=== PATIENT | female | born 1980 | race African-American/Black ===

== ENCOUNTER 2017-02-13 17:36 | Emergency (ER) | payer MEDICAID ==
[2017-02-13 18:04] VITALS: BP 135/91
[2017-02-13 18:19] LABS: Hematocrit 41.7 % (37.0-47.0); Hemoglobin 13.1 gm/dL (12.5-16.0); Mean Cell Volume 79.4 fl (78-100); Mean Corpuscular Hgb Conc 31.4 g/dl (32-36); Mean Platelet Volume 9.8 fl (6.0-9.5); Neutrophil # 9.3 K/mm3 (1.3-6.0); Neutrophil % 65.8 % (42-75.0); Platelet Count 300 K/mm3 (150-450); Red Blood Count 5.25 M/mm3 (4.2-5.4); Red Cell Distribution Width 14.7 % (11.5-14.0); White Blood Count 14.2 K/mm3 (4.0-10.5)
[2017-02-13 18:30] LABS: Urine Bilirubin Negative (NEGATIVE); Urine Blood Negative /ul (NEGATIVE); Urine Ketone Negative (NEGATIVE); Urine Nitrite Negative (NEGATIVE); Urine Protein Negative (NEGATIVE); Urine Specific Gravity >=1.030 SP.GR. (1.005-1.010); Urine Urobilinogen Normal (NORMAL)
[2017-02-13 18:32] LABS: Albumin * 3.5 gm/dl (3.4-5.0); Anion Gap 12.1 mmol/L (6.8-13.8); Bilirubin, Total 0.2 mg/dL (0.0-1.1); Ca. Corrected For Albumin 8.9 mg/dL (8.4-10.2); Calcium * 8.8 mg/dL (7.9-10.9); Carbon Dioxide 26.8 mmol/L (24-32.6); Potassium 3.9 mmol/L (3.4-4.6); Total Protein 7.9 gm/dL (6.2-8.2)
[2017-02-13 19:11] LABS: Urine Color Dark Yellow
[2017-02-13 19:12] LABS: Urine Appearance Clear; Urine WBC None Seen /hpf (0-5)
[2017-02-13 19:13] LABS: Urine Bacteria 2+; Urine RBC None Seen /hpf (0-5)
[2017-02-13 19:14] LABS: Urine Amorphous Sediment Few - 1+ (NONE-FEW)
[2017-02-13] MEDS ORDERED: KETOROLAC TROMETHAMINE 60 MG/2 ML VIAL IM ONE ×2 (20:09→20:10)
--- NOTE | 2017-02-13 20:17 | ERNOTE ---
Back Pain ER HPI Presenting Symptoms: injury/pain to back Time Seen by Provider: 02/13/17 19:58 Source: patient Exam Limitations: no limitations Immunizations: IMMUNIZATION HX Immunizations Up to Date Yes History of Influenza Vaccine No Hx Pneumococcal Vaccination No Allergies/Adverse Reactions: Allergies No Known Allergies Allergy (Verified 02/13/17 18:05) Home Medications: HOME MEDICATIONS Lutera 0.1 - 20 mg PO DAILY 10/07/15 [Last Taken Unknown] Nabumetone 750 mg PO BID #20 tablet 02/13/17 [Last Taken Unknown] Narrative: Pt states he has had left flank pain for 1-2 days. Worse when she takes a deep breath, feels somewhat better when she pushes on it and when she used ice. It was better when she awoke today but worsened throughout the day. Timing: Reports: getting worse Quality/Severity: Reports: severe, dullness Location of pain: Reports: upper back Activities at Onset: Reports: none Recent Injury?: Reports: no Modifying Factors - (Improves): Reports: other - change in position seems to reduce the pain for a short time and then it increases again and she has to change position again Modifying Factors - (Worsens): Reports: cough/deep breaths Associated Symptoms: Reports: sweating - feeling hot Review of Systems - Review of Systems Constitutional: Present: recent illness - mild cough EYE: Present: no symptoms reported ENT: Present: no symptoms reported Respiratory: Present: shortness of breath - she is not sure, cough Cardiology: Absent: chest pain Gastrointestinal/Abdominal: Absent: nausea, vomiting, abdominal pain Genitourinary: Absent: frequency, pain, dysuria Musculoskeletal: Present: no symptoms reported Skin: Present: no symptoms reported Neurological: Present: no symptoms reported Endocrine: Present: no symptoms reported Hematologic/Lymphatic: Present: no symptoms reported Psych: Present: no symptoms reported - Patient's Past Medical History Patient History - Medical: No pertinent hx Patient History - Cardiac/Respiratory: Asthma Patient History - Cancer: No Hx of Cancer Patient History - Surgical Procedures: , Other Patient History - Other: None LMP (Calendar): 01/25/17 - Family History Grandfather-Maternal Family History - Medical: , Diabetes Type 2 Family History - Cardiac/Respiratory: Myocardial Infarction Grandmother-Maternal Family History - Medical: , Diabetes Type 2 Family History - Cardiac/Respiratory: No pertinent hx Mother Family History - Medical: No pertinent hx Family History - Cardiac/Respiratory: Hypertension Aunt Family History - Medical: No pertinent hx Family History - Cardiac/Respiratory: Hypertension Uncle Family History - Medical: No pertinent hx Family History - Cardiac/Respiratory: Hypertension - Social History Living Situations: home Abuse History: No History of abuse Psych History: No pertinent hx Smoking Status: Current every day smoker Alcohol Use: occasionally Drug Use: other - Immunizations Immunizations Up to Date: Yes Hx Pneumococcal Vaccination: No History of Influenza Vaccine: No Physical Exam - Physical Exam General Appearance: Present: wd/wn, alert, no apparent distress Head Exam: Present: normal inspection, no evidence of injury Eye Exam: Normal inspection: bilateral Ears, Nose, Throat: Present: normal ENT inspection Neck: Present: normal inspection, full range of motion Respiratory: Present: no respiratory distress, normal breath sounds, no accessory muscle use Cardiovascular/Chest: Present: regular rate, rhythm, no murmur, normal peripheral pulses Gastrointestinal/Abdominal: Present: nontender, nondistended, soft Back Exam: Present: normal inspection, normal range of motion, CVA tenderness (L ) - minimal, superficial Extremity Exam: Present: normal inspection, non-tender Neurological Exam: Present: alert, oriented, normal mood/affect Skin Exam: Present: normal color, warm/dry. Absent: skin rash Lymphatic Exam: Present: no adenopathy ED Progress - Results and Orders Patient's Lab Results:: I have reviewed the patient's lab results. Results and Orders: Laboratory Tests 02/13/17 02/13/17 02/13/17 18:10 18:20 18:20 WBC 14.2 H Hgb 13.1 Hct 41.7 RDW 14.7 H Sodium 141 Potassium 3.9 Chloride 106 Carbon Dioxide 26.8 Anion Gap 12.1 BUN 15 Creatinine 0.94 Random Glucose 81 Calcium 8.8 Total Bilirubin 0.2 AST 18 ALT 35 Alkaline Phosphatase 82 Total Protein 7.9 Albumin 3.5 Urine Color Dark yellow Urine Appearance Clear Urine pH 6.0 Ur Specific [place] >=1.030 Urine Protein Negative Urine Glucose (UA) Negative Urine Ketones Negative Urine Blood Negative Urine Nitrate Negative Urine Bilirubin Negative Urine Urobilinogen Normal Ur Leukocyte Esterase Negative Urine RBC None seen Urine WBC None seen Ur Epithelial Cells 0-5 Amorphous Sediment Few - 1+ Urine Bacteria 2+ H Urine Culture Comments No culture indicated Urine HCG, Qual 02/13/17 19:49 WBC Hgb Hct RDW Sodium Potassium Chloride Carbon Dioxide Anion Gap BUN Creatinine Random Glucose Calcium Total Bilirubin AST ALT Alkaline Phosphatase Total Protein Albumin Urine Color Urine Appearance Urine pH Ur Specific [place] Urine Protein Urine Glucose (UA) Urine Ketones Urine Blood Urine Nitrate Urine Bilirubin Urine Urobilinogen Ur Leukocyte Esterase Urine RBC Urine WBC Ur Epithelial Cells Amorphous Sediment Urine Bacteria Urine Culture Comments Urine HCG, Qual Negative - Vital Signs Patient's Vital Signs:: I have reviewed the patient's vital signs. Vital Signs: Vital Signs 02/13/17 18:01 Temperature 37.2 C Pulse Rate 90 Respiratory 16 Rate Blood Pressure 135/91 O2 Sat by Pulse 98 Oximetry - X-Ray X-Ray #1 X-Ray: chest Interpretation: Reviewed by me X-ray Comments: Findings: Scattered calcified granulomas. The lungs are clear bilaterally. There is no consolidation, pleural effusion or pneumothorax. Cardiac silhouette and pulmonary vasculature are normal. The osseous structures are normal. IMPRESSION: NO ACUTE CARDIOPULMONARY ABNORMALITY IDENTIFIED. Electronically signed by Ray Mcdaniel D.O.. - Progress/Reassessment Chief Complaint: Back Pain Departure Clinical Impression: Pleurisy - Departure Disposition: Home self-care Condition: Good Instructions: Pleurisy Additional Instructions: Take prescription as prescribed for 5-7 days then as needed. See your primary care physician if not improving. Prescriptions: Nabumetone 750 mg PO BID #20 tablet
== END 2017-02-13 21:15 | disposition home or self-care (01) ==
LOC: ER 17:36
DX: F17.200 Nicotine dependence, unspecified, uncomplicated (principal); R09.1 Pleurisy

== ENCOUNTER 2019-06-28 09:00 | Inpatient (IN) ==
[2019-06-28] MEDS: RINGER'S SOLUTION,LACTATED 1,000 ML IV PRN ×2 (09:30→13:10)
[2019-06-28] MEDS ORDERED: ceFAZolin SODIUM 1 GM VIAL ONE (09:34)
--- NOTE | 2019-06-28 09:36 | PN ---
Progess Note - Interim Date: 06/28/19 Time: : Narrative: 06/28/19 09:33 The patient is a 38 year old at 36w 6d with pre-eclampsia without severe features. She has a headache that has not resolved with tylenol and thus will proceed with delivery given that the patient is almost 37 weeks.
--- NOTE | 2019-06-28 09:47 | ANES ---
Anesthesia Pre Procedure Eval HOME MEDICATIONS Docusate Sodium [Colace] 200 mg PO DAILY 03/29/19 [Last Taken 06/18/19] aspirin 81 mg tablet,delayed release 81 mg PO DAILY 04/04/19 [Last Taken 05/30/19] Ferrous Sulfate [Iron] 650 mg PO DAILY 05/30/19 [Last Taken 06/18/19] breast pump See Rx Instructions .ROUTE .MEDSUPPLY #1 ea 06/10/19 [Last Taken Unknown] Vits96/Iron Fum/Folic [ S] 1 tab PO DAILY 06/23/19 [Last Taken Unknown] clindamycin HCl 300 mg capsule 300 mg PO Q8H 10 Days #30 cap 06/25/19 [Last Taken Unknown] Allergies/Adverse Reactions: Allergies Allergy/AdvReac Type Severity Reaction Status Date / Time No Known Allergies Allergy Verified 06/27/19 08:47 - Planned Procedure Planned Procedure: Repeat Section w/ Bilat Salpingectomy Medication List Reviewed:: Yes Allergies Verified: Yes Medical History (Last Reviewed 06/28/19 @ 09:34 by Darin Bess CRNA) Preeclampsia (Acute) Onset Date: 2019 Alpha thalassemia (Chronic) Cellulitis (Acute) Increase in cellulitis on clindamycin. Stop clindamycin and give a one time dose of Rocephin 2 grams IM contractions (Acute) To L&D for monitoring for one hour Dichorionic diamniotic twin gestation (Acute) NST reactive x2 Pleurisy (Resolved) Colitis (Resolved) Onset Date: ~2018 Abnormal Pap smear of cervix Onset Date: ~2015 ASCUS, +HRHPV, colpo performed-NORBERT I-III, LEEP performed-NORBERT III. Asthma age 19-no problems since Gonorrhea Ovarian cyst Surgical History (Last Reviewed 06/28/19 @ 09:34 by Darin Bess CRNA) H/O wisdom tooth extraction History of LEEP (loop electrosurgical excision procedure) of cervix complicating Onset Date: ~2015 NORBERT III History of colposcopy Onset Date: ~2014 NORBERT I-NORBERT III Previous section Onset Date: ~2006 failure to progress Family History (Last Reviewed 06/28/19 @ 09:34 by Darin Bess CRNA) Mother Hypertension Grandmother Diabetes Cancer colon cancer Uncle Cancer liver cancer Father Unknown family medical history - Family Anesthesia History Family History:: no untoward family reactions to anesthesia - Had sedation post delivery 12 years ago for "shaking" post delivery, no familial bleeding tende ncies, no family history of clotting disorders, no family history of premature - Airway/Neck/Teeth Within Normal Limits:: Yes Teeth Condition: intact Neck Exam: full range of motion Mallampatti Score: 2 Thyromental (T-M) distance: > 6 cm Mandibulo Hyoid distance: > 3 cm - Respiratory Respiratory History: asthma - as child Respiratory Physical: lungs clear Smoking Status: Former smoker - quit during Sleep Apnea currently treated: No Sleep Apnea by current assessment: No - Cardiovascular Tolerate Activity: Fair Heart Sounds: S1 & S2, Regular - Gastrointestinal NPO since: 2400 Comments:: Has "infected bite" left forearm. currently on antibiotics. - Anesthesia Assessment and Plan ASA Class: PS, II Anesthesia Type Plan: Block - bilteral TAP block for post op pain relief, Spinal
[2019-06-28] MEDS ORDERED: OXYTOCIN 20 UNITS in RINGER'S SOLUTION,LACTATED 1,000 ML IV ONE ×4 (09:50)
[2019-06-28] MEDS ORDERED: BISACODYL 10 MG SUPP.RECT RC PRN (09:50)
[2019-06-28] MEDS ORDERED: SENNOSIDES 8.6 MG TABLET PO PRN (09:50)
[2019-06-28] MEDS ORDERED: RINGER'S SOLUTION,LACTATED 1,000 ML IV ONE (09:50)
[2019-06-28] MEDS ORDERED: ONDANSETRON HCL/PF 2 MG/ML VIAL IV PRN (09:50)
[2019-06-28 10:04] LABS: Hematocrit 36.2 % (37.0-47.0); Hemoglobin 11.4 gm/dL (12.5-16.0); Mean Cell Volume 81.7 fl (78-100); Mean Corpuscular Hemoglobin 25.7 pg (27-31); Mean Corpuscular Hgb Conc 31.5 g/dl (32-36); Mean Platelet Volume 11.2 fl (8-12.5); Neutrophil % 66.4 % (42-75.0); Platelet Count 170 K/mm3 (150-450); Red Blood Count 4.43 M/mm3 (4.2-5.4); White Blood Count 10.5 K/mm3 (4.0-10.5)
[2019-06-28] MEDS ORDERED: MIDAZOLAM HCL/PF 5 MG/ML VIAL ONE ×2 (10:56→12:49)
[2019-06-28] MEDS ORDERED: ONDANSETRON HCL/PF 2 MG/ML VIAL ONE (10:57)
[2019-06-28] MEDS ORDERED: BUPIVACAINE HCL/EPINEPHRINE 50 ML VIAL ONE (10:57)
[2019-06-28] MEDS ORDERED: fentaNYL CITRATE/PF 50 MCG/ML AMPUL ONE ×2 (10:57→12:48)
[2019-06-28] MEDS ORDERED: LABETALOL HCL 5 MG/ML VIAL IV ONE (10:57)
[2019-06-28] MEDS ORDERED: ACETAMINOPHEN 500 MG TABLET PO ONE (10:58)
--- NOTE | 2019-06-28 10:58 | PN ---
Progess Note - Interim Date: 06/28/19 Time: 10:57 Narrative: 06/28/19 10:57 Blood pressures are now in the severe range consistent with pre-eclampsia with severe features. Give 1 gram of tylenol for the patient's headache Give labetalol 20 mg IV a one time dose The patient will need magnesium after delivery
[2019-06-28] MEDS ORDERED: MAGNESIUM SULFATE IN WATER 50 ML IV ONE ×3 (11:07→11:15)
[2019-06-28 11:11] LABS: Cocaine Ur Negative (NEGATIVE); Urine Barbiturate Negative (NEGATIVE); Urine Benzodiazepines Negative (NEGATIVE); Urine Opiates Negative (NEGATIVE); Urine PCP Negative (NEGATIVE); Urine THC Negative (NEGATIVE)
[2019-06-28] MEDS ORDERED: CALCIUM GLUCONATE 4.65 MEQ/10 ML VIAL IV PRN (11:20)
[2019-06-28] MEDS ORDERED: DIAZEPAM 5 MG/ML SYRG IV PRN (11:20)
[2019-06-28] MEDS: MAGNESIUM SULFATE IN WATER 1,000 ML IV SCH (12:44)
[2019-06-28] MEDS ORDERED: HYDROmorphone HCL 2 MG/ML VIAL ONE (13:26)
--- NOTE | 2019-06-28 13:49 | ANES ---
Post Anesthesia Discharge - Transfer of Care Transfer of Care handoff given to nurse: Yes - Discharge from PACU Discharge from PACU when meets criteria: Yes - Discharge to ASU Discharge to ASU-no complications/pt stable: Yes
--- NOTE | 2019-06-28 13:52 | ANES ---
Anesthesia Procedure Note Procedure Note: ANESTHESIA PROCEDURE NOTE Date of Procedure: 06/28/2019. Time of procedure: 1330. Performed by: Ra Hargrove CRNA Drive Man: None. Preprocedure diagnosis: Repeat . Post procedure diagnosis: Same. Procedure: Bilateral ultrasound-guided transversus abdominis plane block for postop analgesia. Indications: The patient is a 38-year-old female post section. Findings: See below. Details of the procedure: ChloraPrep was used on the patient's abdomen and the procedure was performed under sterile technique. The right abdominal fascial layer between the internal oblique muscle and the transversus abdominis muscles was identified under ultrasound guidance. A 21-gauge 4 inch block needle was inserted under ultrasound guidance to the target fascial plane. 15 mL's of 0.5% bupivacaine plus epinephrine 1:200,000 was injected after negative aspiration for blood. The needle was removed intact and the procedure was then repeated at the left side. No complications were noted. The images were retained in the hospital medical database. EBL: Minimal. Fluids: N/A. Specimen: N/A. Post procedure condition: The patient tolerated the procedure well. No complications were noted. Thank you for this consultation. Ra Hargrove CRNA
--- NOTE | 2019-06-28 13:54 | ANES ---
Post Anesthesia Assessment - Vital Signs Vitals: Last Vital Signs Temp 36.3 C 06/28/19 13:20 Pulse 67 06/28/19 13:50 Resp 16 06/28/19 13:50 BP 138/81 06/28/19 13:50 Pulse Ox 99 06/28/19 13:50 Airway Patency: Normal - Mental Status Level Of Consciousness: Awake - Pain Level Pain Score: 9 - N/V Assessment Nausea/Vomiting Presence: None Dehydration:: No
--- NOTE | 2019-06-28 13:58 | OR ---
Operative Report - Dictated Report Narrative: Date of delivery: 06/28/2019 Twin A Time of delivery: 120 Gender: female weight: 2237 grams APGARS: 01/21 Twin B Time of delivery: 1202 Gender: female weight: 2722 grams APGARS: 01/21 Preoperative diagnosis: pre-eclampsia with severe features, di/di twin gestat ion, AMA, obesity, desires sterilization Postoperative diagnosis: same Procedure: repeat delivery, bilateral salpingectomy Surgeon: Dr. Lara Anesthesia: Spinal, TAP lock Anesthesiologist: Ra Hargrove CRNA Description of the procedure: The patient was taken to the operating room where spinal anesthesia was induced. She was then prepped and draped in the supine position in the standard surgical fashion. Attention was then turned to the abdomen. A Pfannestiel skin incision was made following the previous incision. The incision was carried through the subcutaneous tissue. The fascia was incised in the midline. The fascial incision was extended laterally and sharply. The fascia was grasped with Roberta clamps and dissected off the underlying rectus muscles. The peritoneum was entered bluntly with good visualization of the bowel and bladder. A large Alon retractor was placed in the abdomen. The uterus was incised in a low transverse fashion. The uterine incision was e xtended bluntly. The membranes were ruptured for twin A. Clear fluid was noted. Twin A was found to be in footling breech presentation. Twin A was delivered using the usual breech manuevers. Cord blood was collected for twin A. Following this the membranes were ruptured for twin B. Twin B was vertex and delivered without any difficulty. Following this both placentas were delivered by expression. The uterus was cleared of all clots and debris. The uterine incision was closed with 0-vicryl. Several 0-vicryl sutures were placed for additional hemostasis. In addition, Hoa was placed to slow down slow oozing as every time I attempted to place an 0-vicryl suture it would rip through the uterus. The left fallopian tube was identified and cut along the mesosalpinx and sent for pathological analysis. The same procedure was repeated on the right. Hemostasis was adequate at the end of the procedure. Once the uterine incision was closed the patient complained of a recurrent headache and thus magnesium sulfate was started for seizure prophylaxis. All peritoneal surfaces, the subfascial tissues and the rectus muscles were inspected and made hemostatic. Hemostasis was adequate at the end of the procedure. Some areas required placement of 2-0 vicryl sutures as electrocautery was not adequate. The subcutaneous tissue was closed with 2-0 vicryl. The skin incision was closed with 3-0 monocryl. [place] cooper was placed over the incision and a pressure dressing was applied. All sponge, lap, and needle counts were correct. The patient tolerated the procedure well. She was transferred to the recovery in stable condition. EBL: 800 mL Complications: none Specimens: placentas and fallopian tubes to pathology History for MU Definition: * The number of deliveries resulting in a live the patient experienced prior to current hospitalization * The previous delivery of live twins or any live multiple gestation is considered one live event. *If primagravida or nulliparous is documented select zero for the number of previous live births. Live Events: 1
[2019-06-28] MEDS: KETOROLAC TROMETHAMINE 30 MG/ML VIAL IV PRN ×2 (15:17→22:19)
[2019-06-28] MEDS: HYDROcodone/ACETAMINOPHEN 1 EACH TABLET PO PRN ×2 (16:15→22:20)
[2019-06-28] MEDS: DOCUSATE SODIUM 100 MG CAPSULE PO SCH (21:47)
[2019-06-29] MEDS: HYDROcodone/ACETAMINOPHEN 1 EACH TABLET PO PRN ×5 (04:33→23:48)
[2019-06-29] MEDS: KETOROLAC TROMETHAMINE 30 MG/ML VIAL IV PRN (04:33)
[2019-06-29] MEDS ORDERED: ceFAZolin SODIUM 1 GM VIAL IV PRN (06:00)
[2019-06-29] MEDS: MAGNESIUM SULFATE IN WATER 1,000 ML IV SCH (08:58)
--- NOTE | 2019-06-29 09:01 | PN ---
Subjective - Date and Time Seen Date: 06/29/19 Time: 08:52 Subjective Narrative: Patient reports a headache Objective Objective Narrative: See vital signs - Review of Systems Generalized/Overall Review: Reports: No Symptoms Reported EENTM: Reports: Other - headache Misc: All systems neg except as marked - Vitals Vitals: Last Vital Signs Temp 36.4 C 06/29/19 06:45 Pulse 86 06/29/19 07:45 Resp 18 06/29/19 07:45 BP 158/89 H 06/29/19 07:45 Pulse Ox 98 06/29/19 07:45 - Abnormal Lab Findings Abnormal Lab Findings: Abnormal Lab Results 06/28/19 Range/Units 10:01 Hgb 11.4 L (12.5-16.0) gm/dL Hct 36.2 L (37.0-47.0) % MCH 25.7 L (27-31) pg MCHC 31.5 L (32-36) g/dl RDW 17.0 H (11.5-14.0) % Immature Gran % (Auto) 1.20 H (0.001-0.429) % Immature Gran # (Auto) 0.13 H (0.000-0.0310) K/mm3 Neutrophils # 7.0 H (1.3-6.0) K/mm3 - Exam Constitutional: Present: Alert, Oriented x3, Cooperative, No distress ENT Exam: Present: hearing grossly normal Abdomen: Present: soft, nontender, nondistended - dressing over incision c/d/i Extremity: Present: non-tender, no calf tenderness Skin Exam: Present: normal color, warm/dry, no cyanosis Appearance: Present: appropriate appearance Eye contact: Present: cooperative, good eye contact, normal speech Thoughts: Present: normal thought pattern Cauti Physician Documentation - Urinary Catheter Management Urethral (Flores) Urethral Indwelling: Yes Date of Insertion: 06/28/19 Time of Insertion: 11:40 Assessment/Plan Plan Narrative: POD 1 s/p repeat delivery Doing well Pre-eclampsia with severe features: continue magnesium for 24 hours after delivery. Turn off magnesium at noon today. The patient reports a headache. Give tylenol for her headache. Blood pressures have been normal to mild range since delivery Left forearm cellulitis s/p insect bite: erythema resolved. Only fluid expressed from open pustule. Culture pending. Will plan for discharge on POD 3 if the patient is stable for discharge
[2019-06-29] MEDS: DOCUSATE SODIUM 100 MG CAPSULE PO SCH ×2 (09:07→21:55)
[2019-06-29] MEDS: PRENATAL VITS96/IRON FUM/FOLIC 1 TAB TABLET PO SCH (09:07)
[2019-06-29] MEDS: IBUPROFEN 800 MG TABLET PO PRN ×2 (11:31→18:02)
[2019-06-29] MEDS: SIMETHICONE 80 MG TAB.CHEW PO PRN (15:45)
[2019-06-30] MEDS: IBUPROFEN 800 MG TABLET PO PRN ×4 (01:19→22:18)
[2019-06-30] MEDS: HYDROcodone/ACETAMINOPHEN 1 EACH TABLET PO PRN ×4 (03:04→19:06)
[2019-06-30] MEDS: PRENATAL VITS96/IRON FUM/FOLIC 1 TAB TABLET PO SCH (08:23)
[2019-06-30] MEDS: DOCUSATE SODIUM 100 MG CAPSULE PO SCH ×2 (08:24→22:18)
--- NOTE | 2019-06-30 11:03 | PN ---
Subjective - Date and Time Seen Date: 06/30/19 Time: 11:00 Subjective Narrative: Patient reports a headache Objective Objective Narrative: See vital signs - Review of Systems Generalized/Overall Review: Reports: No Symptoms Reported Genitourinary Symptoms: Reports: Other - vaginal bleeding Misc: All systems neg except as marked - Vitals Vitals: Last Vital Signs Temp 36.7 C 06/30/19 07:10 Pulse 79 06/30/19 07:10 Resp 81 H 06/30/19 07:10 BP 151/90 H 06/30/19 07:10 Pulse Ox 98 06/30/19 07:10 - Exam Constitutional: Present: Alert, Oriented x3, Cooperative, No distress ENT Exam: Present: hearing grossly normal Neck: Present: normal inspection Breasts: Present: Exam deferred Abdomen: Present: soft, nontender, nondistended - incision c/d/i /Rectal: Present: Exam deferred Extremity: Present: non-tender, no calf tenderness Skin Exam: Present: normal color, warm/dry, no cyanosis Appearance: Present: appropriate appearance, appropriate insight Eye contact: Present: cooperative, good eye contact, normal speech Thoughts: Present: normal thought pattern Cauti Physician Documentation - Urinary Catheter Management Urethral (Flores) Urethral Indwelling: No Date of Insertion: 06/28/19 Time of Insertion: 11:30 Date of Removal: 06/29/19 Time of Removal: 16:15 Assessment/Plan Plan Narrative: POD 2 s/p repeat delivery, salpingectomies Doing well Insect bite well-healed. Culture grew Staph. Sensitivities pending Discharge tomorrow
[2019-06-30] MEDS: SIMETHICONE 80 MG TAB.CHEW PO PRN (13:43)
[2019-07-01] MEDS: HYDROcodone/ACETAMINOPHEN 1 EACH TABLET PO PRN ×3 (03:36→17:07)
[2019-07-01] MEDS: MAGNESIUM SULFATE IN WATER 1,000 ML IV SCH ×2 (06:55→14:36)
[2019-07-01] MEDS: IBUPROFEN 800 MG TABLET PO PRN ×2 (06:56→17:07)
--- NOTE | 2019-07-01 08:08 | PN ---
Subjective - Date and Time Seen Date: 07/01/19 Time: 08:06 Subjective Narrative: Patient reports a headache Objective Objective Narrative: See vital signs - Review of Systems Generalized/Overall Review: Reports: No Symptoms Reported Misc: All systems neg except as marked - Vitals Vitals: Last Vital Signs Temp 36.4 C 07/01/19 06:36 Pulse 83 07/01/19 06:36 Resp 18 07/01/19 06:36 BP 148/80 H 07/01/19 06:36 Pulse Ox 97 07/01/19 06:36 - Exam Constitutional: Present: Alert, Oriented x3, Cooperative, No distress ENT Exam: Present: hearing grossly normal Abdomen: Present: soft, nontender, nondistended - incision c/d/i Extremity: Present: non-tender, no calf tenderness Skin Exam: Present: normal color, warm/dry, no cyanosis Appearance: Present: appropriate appearance, appropriate insight Eye contact: Present: cooperative, good eye contact, normal speech Thoughts: Present: normal thought pattern Cauti Physician Documentation - Urinary Catheter Management Urethral (Flores) Urethral Indwelling: No Date of Insertion: 06/28/19 Time of Insertion: 11:30 Date of Removal: 06/29/19 Time of Removal: 16:15 Assessment/Plan Plan Narrative: POD 3 s/p delivery, salpingectomies Doing well Discharge instructions given Discharge home on procardia 30 mg XL Discharge today Follow-up in 2 weeks for an incision check or sooner for any other concerns
[2019-07-01] MEDS ORDERED: NIFEdipine 30 MG TAB.SR.24H PO SCH (09:00)
[2019-07-01] MEDS: PRENATAL VITS96/IRON FUM/FOLIC 1 TAB TABLET PO SCH (14:38)
[2019-07-01] MEDS: DOCUSATE SODIUM 100 MG CAPSULE PO SCH (14:38)
[2019-07-01 18:20] VITALS: BP 146/89
== END 2019-07-01 19:15 | disposition home or self-care (01) | DRG 784 ==
LOC: OB 09:12
PROVIDERS: ADMIT Obstetrics & Gynecology; ATTEND Obstetrics & Gynecology
CPT/HCPCS: 36415; 59025; 76818; 76819; 80053; 80307; 85025; 86850; 87070; 87077; 87186; 88302; 88304; 88307; 88888; J2405